=== PATIENT | female | born 1955 | race Caucasian/White ===

== ENCOUNTER 2022-07-16 18:54 | Emergency (ER) | payer MEDICARE ==
[~2022-07-16] VITALS: Ht 170.2 cm; Wt 77.1 kg
[2022-07-16] MEDS ORDERED: TRAM50TA4 PO (22:10)
[2022-07-16 22:21] VITALS: BP 129/86
[2022-07-16] MEDS ORDERED: TRAMADOL HCL 50 MG TABLET ONE (22:40)
== END 2022-07-16 22:51 | disposition home or self-care (01) ==
LOC: EDH 18:54
DX: S52.502A Unspecified fracture of the lower end of left radius, initial encounter for closed fracture (principal); S52.202A Unspecified fracture of shaft of left ulna, initial encounter for closed fracture; S92.351A Displaced fracture of fifth metatarsal bone, right foot, initial encounter for closed fracture; Z90.89 Acquired absence of other organs; W19.XXXA Unspecified fall, initial encounter; Y93.89 Activity, other specified; Y92.89 Other specified places as the place of occurrence of the external cause; Y99.8 Other external cause status
CPT/HCPCS: 29125; 29515; 73110; 73630